=== PATIENT | female | born 1970 | race Caucasian/White ===

== ENCOUNTER → 2017-06-29 | Outpatient (CLI) | payer OTHER | LOC: CIMAGING 14:20 | PROVIDERS: ATTEND Obstetrics & Gynecology | DX: Z12.31 Encounter for screening mammogram for malignant neoplasm of breast (principal) ==

== ENCOUNTER → 2018-06-30 | Outpatient (CLI) | payer OTHER | LOC: CIMAGING 14:44 | PROVIDERS: ATTEND Family Medicine | DX: Z12.31 Encounter for screening mammogram for malignant neoplasm of breast (principal) ==